=== PATIENT | female | born 1970 | race Caucasian/White ===

== ENCOUNTER 2016-08-09 12:35 | Day surgery (SDC) | payer OTHER ==
[~2016-08-09] VITALS: Ht 165.1 cm; Wt 145.0 kg
[~2016-08-09 12:35] MED LIST: CYCL5TAB PO; EPIN0.3P2 IJ; GABA-500 PO; HYDR-3740 PO; IBUP100T7 PO; LOSA25TA21 PO; NAPR220C11 PO; ROB500 PO; SERT25TA6 PO; TRAM-14 PO; [UNRECOGNIZED DRUG - CODE] PO
[2016-08-09] MEDS ORDERED: Glycopyrrolate 0.2 MG/ML 1mL Inj ONE (12:36)
[2016-08-09] MEDS ORDERED: Iohexol 240 mg/mL 10 mL Inj ONE (12:36)
[2016-08-09] MEDS ORDERED: Dexamethasone 10 mg/mL Inj ONE (12:36)
[2016-08-09] MEDS ORDERED: Lidocaine PF 2% 10 mL Inj ONE (12:36)
[2016-08-09 12:57] VITALS: BP 139/98; PULSE 71; RESP 14; O2SAT 98
[2016-08-09] MEDS ORDERED: [UNRECOGNIZED DRUG - OTHER] PO (13:16)
[2016-08-09] MEDS ORDERED: DIAZ5TAB PO (13:16)
[2016-08-09] MEDS ORDERED: IMI25 PO (13:16)
[2016-08-09] MEDS ORDERED: Glycopyrrolate 0.2 MG/ML 1mL Inj IVPUSH ONE (13:24)
[2016-08-09 13:26] VITALS: BP 153/88; PULSE 96; RESP 18; O2SAT 97
[2016-08-09 13:30] VITALS: BP 164/88; PULSE 75; RESP 18; O2SAT 97
[2016-08-09 13:35] VITALS: BP 144/89; PULSE 77; RESP 16; O2SAT 98
[2016-08-09 13:42] VITALS: BP 166/116; PULSE 78; RESP 18
[2016-08-09 14:11] VITALS: BP 147/97; PULSE 79; RESP 16; O2SAT 100
--- NOTE | 2016-08-09 15:07 | PCM.PROC ---
Procedure Note Date of Service: August 09, 2016 Pre Procedure Diagnosis: PROCEDURE: LEFT L3 transforaminal epidural steroid injection PRE-PROCEDURE DIAGNOSIS: Lumbar radiculopathy POST-PROCEDURE DIAGNOSIS: same INDICATION: 45-year-old patient with LEFT leg pain consistent with lumbar radiculopathy PERFORMED BY: Hipolito Perea MD DESCRIPTION OF PROCEDURE: Patient was met in the holding area. Consent was signed, site was confirmed and all questions were answered. was taken to the procedure suite and placed prone on the procedure table. The image intensifier was manipulated to minimize double shadows of the vertebral endplates above the neural foramen to be addressed. The image intensifier was rotated 30 ipsilaterally for Nelson dog appearance. A 25- gauge 5-inch Quincke needle was advanced towards the target area using tunnel view. The image intensifier was then changed to the lateral view and the needle was advanced towards the "safe triangle". Proper positioning was confirmed in the AP view so the tip of the needle ended at the most inferolateral aspect of the superior pedicle. Proper positioning was confirmed with injection of radiopaque contrast dye which showed delineation of the nerve root as well as epidural spread. The contrast was then injected under live fluoroscopy to rule out inadvertent vascular uptake. 1 cc of 2% Lidocaine was injected slowly. After 1 minute the patient was found to be able to move the legs appropriately with no signs or symptoms of vascular uptake of the lidocaine 10 mg dexamethasone was injected followed by another 1/2 cc of 2% Lidocaine . ANESTHESIA: Local EBL: None. No Blood Products Used COMPLICATIONS: None SPECIMENS: None POST-PROCEDURE DISPOSITION: Patient was returned to the holding area in stable condition. They were discharged home when all discharge criteria were met. Evaluation/Physical Exam before discharge revealed: Preprocedure pain: 5/10. Post procedure pain: 0/10 DISCHARGE MEDICATIONS: (none, unless otherwise noted) FOLLOW UP: Return to clinic in 4 weeks Hipolito Perea MD * Pain Management * Anesthesiology .ED: Y: Patient given care and follow up instructions Hipolito Perea MD August 09, 2016 15:07
== END 2016-08-09 23:59 | disposition home or self-care (01) ==
LOC: END 12:35
PROVIDERS: ATTEND Anesthesiology Pain Medicine
DX: M54.16 Radiculopathy, lumbar region (principal); I10 Essential (primary) hypertension
CPT/HCPCS: 64483; J1100